=== PATIENT | male | born 1945 | race Caucasian/White ===

== ENCOUNTER 2020-01-10 13:14 | Inpatient (IN) ==
[2020-01-10] MEDS ORDERED: METOPROLOL TARTRATE 25 MG TABLET PO SCH (14:45)
[2020-01-10] MEDS ORDERED: CALCIUM CARBONATE 500 MG TAB.CHEW PO PRN (14:45)
[2020-01-10] MEDS ORDERED: ACETAMINOPHEN 325 MG TABLET PO PRN (14:45)
[2020-01-10] MEDS ORDERED: guaiFENesin 100 MG/5 ML SYRUP PO PRN ×2 (14:45→15:00)
[2020-01-10] MEDS ORDERED: SENNOSIDES/DOCUSATE SODIUM 1 TAB TABLET PO PRN (14:45)
[2020-01-10] MEDS ORDERED: ALBUTEROL SULFATE 2.5 MG/0.5 ML VIAL.NEB IH PRN (14:45)
[2020-01-10] MEDS ORDERED: ATROPINE SULFATE 50 DROP BTL SL PRN (14:45)
[2020-01-10] MEDS ORDERED: POLYVINYL ALCOHOL 150 DROP BTL EACHEYE PRN (14:45)
[2020-01-10] MEDS ORDERED: PANTOPRAZOLE SODIUM 20 MG TABLET.DR PO PRN (14:45)
[2020-01-10] MEDS ORDERED: ASPIRIN 325 MG TABLET.DR PO PRN (14:45)
[2020-01-10] MEDS: MORPHINE SULFATE 10 MG/0.5 ML SYRINGE PO PRN ×2 (14:53→19:20)
[2020-01-10] MEDS: clonazePAM 1 MG TABLET PO PRN (14:54)
--- NOTE | 2020-01-10 16:04 | HP ---
Chief Complaint - Chief Complaint Date of Service: 01/10/20 Time of Service: 15:55 Chief Complaint: Hospice Respite, Pain control History of Present Illness: Ramakrishna is a 74 yo male in Hospice with [facility]. He is needing inpatient respite for pain control. He is currently on oral morphine concentrate 20mg q1hr prn severe pain. He has no respiratory distress or nausea. He reports decreased appetite. He reports anxiety. Medical History (Last Reviewed 01/10/20 @ 14:24 by Moises Abbasi RN) Hemoptysis (Acute) Onset Date: 05/19/18 [facility] ED, transferred to [facility]. Lung mass (Acute) Onset Date: 04/12/18 Large dominant left perihilar mass. *See CT Chest w/ contrast obtained on 04/12/2018. Osteoarthritis (Chronic) Onset Date: Unknown Lung nodules (Chronic) Onset Date: Unknown Hypertension (Chronic) Onset Date: Unknown Hyperlipidemia (Chronic) Onset Date: Unknown Hiatal hernia (Chronic) Onset Date: Unknown Herniated disc (Chronic) Onset Date: Unknown GERD (gastroesophageal reflux disease) (Chronic) Onset Date: Unknown Erectile dysfunction (Chronic) Onset Date: Unknown Coronary artery disease (Chronic) Onset Date: 12/07/09 Colostomy present (Chronic) Onset Date: Unknown Cardiomyopathy, secondary (Chronic) Onset Date: 12/07/09 Colon cancer Onset Date: Unknown History of chemotherapy Onset Date: 06/14/18 Started on FOLFOX. Followed by Dr. Jeramy Steele, [place] [facility]. Hospital admission Onset Date: 05/19/18 Admitted to [facility] on 05/19/2018; hemoptysis. Discharged home on 05/24/2019. Metastatic adenocarcinoma Onset Date: ~2018 Metastatic colon adenocarcinoma, stage IV. Rectal neoplasm Onset Date: Unknown Scleritis Onset Date: ~03/2019 Renal cyst Onset Date: Unknown History of MRI of brain and brain stem Onset Date: 06/01/18 History of PET scan Onset Date: 06/02/18 [facility]. Impression: 1. Intense FDG uptake indentified in the left perihilar mass consistent with biopsy-proven squamous cell carcinoma. 2. Associated local metastatic lymphadenopathy in the left hilum as well as multiple pulmonary parenchymal metastasis seen bilaterally. Tear of meniscus of knee Onset Date: Unknown Myocardial infarct Onset Date: Unknown Surgical History: Surgical History (Last Reviewed 01/10/20 @ 14:24 by Moises Abbasi RN) History of bronchial artery embolization Onset Date: 05/20/18 Dr. Shlomo Leung, [facility]. History of bronchoscopy Onset Date: 05/14/18 [facility]. History of colectomy Onset Date: ~2013 History of colostomy Onset Date: Unknown History of insertion of infusion port Onset Date: 06/07/18 Dr. Chuck Lara, [facility]. History of total knee arthroplasty Onset Date: ~02/2007 Family History: Family History (Last Reviewed 11/27/19 @ 19:37 by Arnaldo Flores MD) Brother , age 69 Diabetes Heart disease Brother , age 65 Gout Brain tumor Brother , age 75 Gout Prostate cancer Sister Heart disease Father , age 45 Myocardial infarction Mother , age 76 Alzheimers disease Brother , age 84 Suicide Social History: (Last Reviewed 01/10/20 @ 14:24 by Moises Abbasi RN) Social History: adopted: No alf: No Marital status: household members: significant other number of children: 1 current occupational status: retired Previous occupational history: [employer] Highest education level completed: high school graduate Financial difficulty paying for basics: somewhat hard Service: No Tobacco: Smoking Status: Never smoker Alcohol: alcohol intake: never Substance Use: substance use type: does not use Dietary Habits: caffeine: No Deysi/Anglican: special deysi needs: No Review Of Systems (GEN) - Review of Systems Generalized/Overall Review: Present: Weakness. Absent: Chills, Fever EENTM: Present: No Symptoms Reported Respiratory: Absent: Cough, Shortness of Breath Cardiac: Absent: Chest Pain, Edema, Palpitations Abdominal: Absent: Nausea, Vomiting Genitourinary: Absent: Burning, Itching Neurological: Present: Anxiety. Absent: Headache Skin: Present: No Symptoms Reported Immunizations: IMMUNIZATION HX Immunizations Up to Date Yes History of Influenza Vaccine Yes Hx Pneumococcal Vaccination No Allergies/Adverse Reactions: Allergies Allergy/AdvReac Type Severity Reaction Status Date / Time No Known Allergies Allergy Verified 01/10/20 14:24 Home Medications: HOME MEDICATIONS [place] Drainable Pouches 0 .ROUTE .MEDSUPPLY #1 ea 04/04/18 [Last Taken Unknown] Jerry Lubricated Deodorant 0 .ROUTE .MEDSUPPLY #1 ea 04/04/18 [Last Taken Unknown] adhesive remover See Dose Instructions .ROUTE .MEDSUPPLY #600 ea 04/04/18 [Last Taken Unknown] benzonatate 100 mg capsule 100 mg PO TID PRN 05/28/18 [Last Taken Unknown] calcium carbonate 200 mg calcium (500 mg) chewable tablet 200 mg PO DAILY PRN tab 05/28/18 [Last Taken Unknown] diphenhydramine 25 mg-acetaminophen 500 mg tablet 2 tab PO HS PRN tab 05/28/18 [Last Taken Unknown] docusate sodium 100 mg capsule 100 mg PO BID 05/28/18 [Last Taken Unknown] guaifenesin 100 mg/5 mL oral liquid 200 mg PO Q4H PRN 05/28/18 [Last Taken Unknown] sennosides 8.6 mg tablet 8.6 mg PO BID PRN 05/28/18 [Last Taken Unknown] omeprazole 20 mg capsule,delayed release 20 mg PO BID #180 cap 07/03/18 [Last Taken Unknown] atorvastatin 40 mg tablet 40 mg PO HS #90 tab 09/21/18 [Last Taken Unknown] aprepitant 40 mg capsule 80 mg PO DAILY 04/18/19 [Last Taken Unknown] metoprolol tartrate 25 mg tablet 25 mg PO BID #180 tab 05/06/19 [Last Taken Unknown] losartan 100 mg tablet 100 mg PO DAILY #90 tab 05/16/19 [Last Taken Unknown] atropine 1 % eye drops 2 drp SL DAILY PRN #5 ml 06/10/19 [Last Taken Unknown] sertraline 50 mg tablet 50 mg PO DAILY #30 tab 07/04/19 [Last Taken Unknown] clonazepam 1 mg tablet 1 mg PO QID #120 tab 08/04/19 [Last Taken Unknown] ondansetron HCl 8 mg tablet 8 mg PO Q8H PRN 15 Days #45 tab 10/13/19 [Last Taken Unknown] sodium chloride 0.9 % (flush) 10 ml IV .q 6weeks ml 11/24/19 [Last Taken Unknown] fluoxetine 20 mg capsule 20 mg PO DAILY #30 cap 12/15/19 [Last Taken Unknown] albuterol sulfate 90 mcg/actuation aerosol inhaler 2 puff INHALATION Q4H PRN #8.5 g 12/26/19 [Last Taken Unknown] hydrocodone 7.5 mg-acetaminophen 325 mg tablet See Rx Instructions PO DAILY #90 tab 12/26/19 [Last Taken Unknown] morphine concentrate 100 mg/5 mL (20 mg/mL) oral solution 20 mg PO Q1H PRN #90 ml 12/26/19 [Last Taken Unknown] trazodone 100 mg tablet 100 mg PO HS #30 tab 12/26/19 [Last Taken Unknown] Exam - Exam Vital Signs: Vital Signs - Last Taken Temp 36.8 C 01/10/20 13:29 Pulse 76 01/10/20 13:29 Resp 16 01/10/20 13:29 BP 129/68 01/10/20 13:29 Pulse Ox 97 01/10/20 13:29 Constitutional: Present: Alert, Oriented x3, Cooperative, No distress ENT Exam: Present: hearing grossly normal Eye Exam: bilateral eye: normal inspection Respiratory: Present: lungs clear, normal breath sounds Cardiovascular/Chest: Present: regular rate, rhythm, no murmur Peripheral Pulses: radial (R): 2+, radial (L): 2+ Abdomen: Present: soft, other - colostomy WNL, hypoactive Skin Exam: Present: normal color, warm/dry, no cyanosis Appearance: Present: appropriate appearance, appropriate insight Eye contact: Present: cooperative, good eye contact, normal speech Assessment/Plan - Narrative Narrative: Ramakrishna will be admitted to hospice respite care inpatient due to need for pain control beyond what family and home hospice can provide. He will have pain and nausea medications continued as per hospice. Will hold off on IV at this time for patient comfort unless oral morphine is unable to control his pain and then may need IV morphine. Expect 5 days of hospice respite. - Assessment/Plan (1) Hospice care Problem: Chronic (2) Lung cancer Problem: Acute (3) Colon cancer Problem: Chronic Qualifiers:
[2020-01-10] MEDS: HYDROcodone/ACETAMINOPHEN 5 ML UDC PO PRN (19:21)
[2020-01-10] MEDS: ONDANSETRON HCL 8 MG TABLET PO PRN (19:35)
[2020-01-10] MEDS: METOPROLOL TARTRATE 25 MG TABLET PO SCH (20:30)
[2020-01-11] MEDS: clonazePAM 1 MG TABLET PO PRN ×4 (03:02→21:52)
[2020-01-11] MEDS: MORPHINE SULFATE 10 MG/0.5 ML SYRINGE PO PRN ×5 (03:02→21:53)
[2020-01-11] MEDS: LOSARTAN POTASSIUM 50 MG TABLET PO SCH (08:05)
[2020-01-11] MEDS: METOPROLOL TARTRATE 25 MG TABLET PO SCH ×2 (08:05→20:18)
[2020-01-11] MEDS: FLUoxetine HCL 20 MG CAPSULE PO SCH (08:05)
[2020-01-12] MEDS: MORPHINE SULFATE 10 MG/0.5 ML SYRINGE PO PRN ×4 (01:11→16:11)
[2020-01-12] MEDS: HYDROcodone/ACETAMINOPHEN 5 ML UDC PO PRN ×2 (07:19→16:11)
[2020-01-12] MEDS: FLUoxetine HCL 20 MG CAPSULE PO SCH (09:35)
[2020-01-12] MEDS: LOSARTAN POTASSIUM 50 MG TABLET PO SCH (09:35)
[2020-01-12] MEDS: METOPROLOL TARTRATE 25 MG TABLET PO SCH ×2 (09:35→20:22)
[2020-01-12] MEDS: ONDANSETRON HCL 8 MG TABLET PO PRN (16:09)
[2020-01-12] MEDS: diphenhydrAMINE HCL 50 MG CAPSULE PO PRN (20:22)
[2020-01-13] MEDS: MORPHINE SULFATE 10 MG/0.5 ML SYRINGE PO PRN ×5 (02:45→21:50)
[2020-01-13] MEDS: ONDANSETRON HCL 8 MG TABLET PO PRN (07:38)
[2020-01-13] MEDS: clonazePAM 1 MG TABLET PO PRN ×3 (08:26→19:34)
[2020-01-13] MEDS: METOPROLOL TARTRATE 25 MG TABLET PO SCH ×2 (08:27→20:31)
[2020-01-13] MEDS: FLUoxetine HCL 20 MG CAPSULE PO SCH (08:27)
[2020-01-13] MEDS: LOSARTAN POTASSIUM 50 MG TABLET PO SCH (08:27)
--- NOTE | 2020-01-13 12:08 | PN ---
Progess Note - Interim Date: 01/13/20 Time: 11:50 Narrative: 01/13/20 12:06 Periodically, hospice patients need a face to face chief medical officer visit, which is the purpose of this one. Metastatic cancer. With respite care, pain is now controlled, constipation is now controlled and abdominal problems are well controlled. In spite of that, he continues to weaken and remains a hospice candidate. Arnaldo Hennessy MD [facility] Real Estate Intern.
[2020-01-13] MEDS: diphenhydrAMINE HCL 50 MG CAPSULE PO PRN (21:49)
[2020-01-14] MEDS: MORPHINE SULFATE 10 MG/0.5 ML SYRINGE PO PRN ×3 (03:28→13:25)
[2020-01-14] MEDS: clonazePAM 1 MG TABLET PO PRN ×2 (08:51→13:26)
[2020-01-14] MEDS: FLUoxetine HCL 20 MG CAPSULE PO SCH (09:57)
[2020-01-14] MEDS: METOPROLOL TARTRATE 25 MG TABLET PO SCH (09:57)
[2020-01-14] MEDS: LOSARTAN POTASSIUM 50 MG TABLET PO SCH (09:57)
--- NOTE | 2020-01-14 13:19 | DS ---
Date of Discharge:: 01/14/20 Hospital Course: Patient was here for respite care and for pain management with plans to return home with [facility] hospice services. There has been no new developments with him and no changes were made to his medications. So we will resume all of his routine medications so that he can continue taking them as prescribed. Hospice services have been set up. Procedures Performed: none Discharge Location: Home Disposition: Hospice Home Condition: Poor Face to Face Encounter completed per [facility] Guidelines: No Discharge Activity: Activity as tolerated Discharge Diet: General/regular food Referrals: Maxx Mart DO [Primary Care Provider] - Additional Patient Instructions (free text): Resume services with [facility] Complete Home Medications List: Complete Home Medication List: Jerry Drainable Pouches 0 .ROUTE .MEDSUPPLY #1 ea 04/04/18 Jerry Lubricated Deodorant 0 .ROUTE .MEDSUPPLY #1 ea 04/04/18 adhesive remover See Dose Instructions .ROUTE .MEDSUPPLY #600 ea 04/04/18 benzonatate 100 mg capsule 100 mg PO TID PRN 05/28/18 calcium carbonate 200 mg calcium (500 mg) chewable tablet 200 mg PO DAILY PRN tab 05/28/18 diphenhydramine 25 mg-acetaminophen 500 mg tablet 2 tab PO HS PRN tab 05/28/18 docusate sodium 100 mg capsule 100 mg PO BID 05/28/18 guaifenesin 100 mg/5 mL oral liquid 200 mg PO Q4H PRN 05/28/18 sennosides 8.6 mg tablet 8.6 mg PO BID PRN 05/28/18 omeprazole 20 mg capsule,delayed release 20 mg PO BID #180 cap 07/03/18 atorvastatin 40 mg tablet 40 mg PO HS #90 tab 09/21/18 aprepitant 40 mg capsule 80 mg PO DAILY 04/18/19 metoprolol tartrate 25 mg tablet 25 mg PO BID #180 tab 05/06/19 losartan 100 mg tablet 100 mg PO DAILY #90 tab 05/16/19 atropine 1 % eye drops 2 drp SL DAILY PRN #5 ml 06/10/19 sertraline 50 mg tablet 50 mg PO DAILY #30 tab 07/04/19 clonazepam 1 mg tablet 1 mg PO QID #120 tab 08/04/19 ondansetron HCl 8 mg tablet 8 mg PO Q8H PRN 15 Days #45 tab 10/13/19 sodium chloride 0.9 % (flush) 10 ml IV .q 6weeks ml 11/24/19 fluoxetine 20 mg capsule 20 mg PO DAILY #30 cap 12/15/19 albuterol sulfate 90 mcg/actuation aerosol inhaler 2 puff INHALATION Q4H PRN #8.5 g 12/26/19 hydrocodone 7.5 mg-acetaminophen 325 mg tablet See Rx Instructions PO DAILY #90 tab 12/26/19 morphine concentrate 100 mg/5 mL (20 mg/mL) oral solution 20 mg PO Q1H PRN #90 ml 12/26/19 trazodone 100 mg tablet 100 mg PO HS #30 tab 12/26/19
[2020-01-14 14:00] VITALS: BP 149/85
== END 2020-01-14 13:52 | disposition hospice, home (50) | DRG 951 ==
LOC: MS 13:14
PROVIDERS: ADMIT Family Medicine; ATTEND Family Medicine